=== PATIENT | male | born 1960 | race Caucasian/White ===

== ENCOUNTER 2018-12-26 11:19 | Emergency (ER) | payer SELFPAY ==
[2018-12-26] MEDS: LIDOCAINE 1% (MPF) 5 ML VIAL INFIL (12:18)
== END 2018-12-26 14:06 | disposition left against medical advice (07) ==
LOC: FTE 11:19
DX: L02.512 Cutaneous abscess of left hand (principal)
CPT/HCPCS: 26010; 99283-25